=== PATIENT | male | born 1995 | race African-American/Black ===

== ENCOUNTER 2021-08-06 06:44 | Emergency (ER) | payer OTHER ==
[~2021-08-06] VITALS: Ht 170.2 cm; Wt 73.6 kg
[2021-08-06] MEDS ORDERED: KETOROLAC 30MG/ML VIAL IV STA (07:42)
[2021-08-06 08:24] LABS: BASOPHILS % 0.6 % (0.0-2.0); EOSINOPHILS % 0.8 % (0.0-5.0); HEMATOCRIT. 43.3 % (42.0-52.0); HEMOGLOBIN. 14.3 g/dL (14.0-18.0); LYMPHOCYTES % 18.1 % (20.0-50.0); MEAN CORPUSCULAR HEMOGLOBIN 27.4 pg (28.0-32.0); MEAN CORPUSCULAR VOLUME 83.1 fL (80.0-94.0); MEAN PLATELET VOLUME 7.9 fl (7.4-10.4); MONOCYTES % 7.4 % (2.0-8.0); NEUTROPHILS % 73.1 % (40.0-76.0); PLATELET 294 x1000/uL (130-400); RED BLOOD CELL COUNT 5.21 mill/uL (4.7-6.1); RED CELL DISTRIBUTION WIDTH 15.1 % (11.6-14.6)
[2021-08-06 08:37] LABS: CLARITY URINE CLOUDY (CLEAR); COLOR URINE YELLOW (YELLOW); KETONES URINE TRACE (NEGATIVE); LEUKOCYTE ESTERASE URINE 1+ (NEGATIVE); NITRITE URINE NEGATIVE (NEGATIVE); OCCULT BLOOD URINE 3+ (NEGATIVE); PH URINE 5.5 (4.5-8.0); PROTEIN URINE 2+ (NEGATIVE); SPECIFIC GRAVITY URINE 1.033 (1.005-1.030)
[2021-08-06 10:00] LABS: CHLORIDE 105 mEq/L (98-107)
[2021-08-06] MEDS ORDERED: NITR100C PO (10:27)
[2021-08-06] MEDS ORDERED: OXYC-100 PO (10:27)
[2021-08-06 11:00] VITALS: BP 120/80
== END 2021-08-06 11:07 | disposition home or self-care (01) ==
LOC: ER 06:44
DX: N13.2 Hydronephrosis with renal and ureteral calculous obstruction (principal); N50.811 Right testicular pain
CPT/HCPCS: 36415; 74176; 76870; 80053; 81003; 83690; 85025; 85660; 93976; 96374; 99284; J1885

== ENCOUNTER 2022-04-04 14:15 | Emergency (ER) | payer OTHER ==
[~2022-04-04] VITALS: Ht 167.6 cm; Wt 75.0 kg
[~2022-04-04 14:15] MED LIST: NITR100C PO; OXYC-100 PO
[2022-04-04] MEDS ORDERED: GUAI400T93 MT (16:26)
[2022-04-04 17:11] VITALS: BP 126/75
== END 2022-04-04 17:14 | disposition home or self-care (01) ==
LOC: ER 15:25
DX: U07.1 COVID-19 (principal); J06.9 Acute upper respiratory infection, unspecified
CPT/HCPCS: 87426; 99283; C9803